=== PATIENT | male | born 1990 | race Caucasian/White ===

== ENCOUNTER 2019-12-22 08:00 | Emergency (ER) | payer SELFPAY ==
[~2019-12-22] VITALS: Ht 177.8 cm; Wt 90.0 kg
[2019-12-22 08:00] VITALS: BP 139/86
--- NOTE | 2019-12-22 08:43 | PHYS DOC ---
Past History Past Medical History: No Pertinent History General Adult EDM: Chief Complaint: KNEE INJURY HPI: HPI: Patient is a 29-year-old male who presents to the emergency department for right knee injury. He states he was play wrestling with his brother yesterday kaela cardoza, when he injured his knee while he was being taken down. He complains of pain over the lateral aspect of his knee, but is able to walk on his knee although it is painful to do so. He denies any other injuries, numbness, or weakness. Review of Systems: Review of Systems: Constitutional: Denies fever or chills Musculoskeletal: Denies back pain or joint pain, other than the right knee Integument: Denies rash Neurologic: Denies headache, focal weakness or sensory changes Heart Score: Risk Factors: Risk Factors: DM, Current or recent (<one month) smoker, HTN, HLP, family history of CAD, obesity. Risk Scores: Score 0 - 3: 2.5% MACE over next 6 weeks - Discharge Home Score 4 - 6: 20.3% MACE over next 6 weeks - Admit for Clinical Observation Score 7 - 10: 72.7% MACE over next 6 weeks - Early Invasive Strategies Allergies: Allergies: Allergies Coded Allergies Type Severity Reaction Last Updated Verified No Known Drug Allergies 12/22/19 No Physical Exam: PE: PHYSICAL EXAM: HEENT: Atruamatic NECK: Supple, normal ROM, non-tender. CARDIAC: Regular Rate and Rhythm LUNGS: Clear Bilaterally EXTREMITIES: There is tenderness to palpation over the lateral aspect of the right knee, with trace soft tissue swelling present on exam. The patient is able to fully flex and extend his knee. There is discomfort with strain and stress of the lateral collateral ligament. There is no tenderness palpation anteriorly, medially, or posteriorly. The knee landmarks and patella appear anatomically aligned. The remainder the extremities are unremarkable. PMS intact. EKG: EKG: [] Radiology/Procedures: Radiology/Procedures: PROCEDURE: KNEE RIGHT 3V Three-view right knee AP lateral oblique views HISTORY: Pain The visualized osseous structures appear normal. There is a dense effusion seen on lateral view. IMPRESSION: Effusion seen on the lateral view. This can be seen with an ACL tear. No bony anomaly identified.[] Course & Med Decision Making: Course & Med Decision Making Patient condition remained stable. I discussed test results, the suspected ligamentous injury, the need for orthopedic follow-up, knee immobilizer use and return precautions. Dragon Disclaimer: Dragon Disclaimer: This electronic medical record was generated, in whole or in part, using a voice recognition dictation system. Departure Departure: Impression: Primary Impression: Internal derangement of knee Disposition: 01 HOME/RESIDENCE PRIOR TO ADM Condition: STABLE Referrals: KOMAL LLANES MD (PCP) Patient Instructions: Knee Immobilizer, [id number], Knee Sprain Additional Instructions: Follow-up with orthopedics at [facility], call [phone] to schedule an appointment. Justification of Admission: Justification of Admission: Justification of Admission Dx: N/A CONNIE SORIA MD Dec 22, 2019 08:43
[2019-12-22] MEDS ORDERED: ACETAMINOPHEN 325 MG TABLET PO ONE (08:45)
--- NOTE | 2019-12-22 09:22 | RAD ---
Three-view right knee AP lateral oblique views HISTORY: Pain The visualized osseous structures appear normal. There is a dense effusion seen on lateral view. IMPRESSION: Effusion seen on the lateral view. This can be seen with an ACL tear. No bony anomaly identified. Electronically signed by: Bruce Vivas III, MD (12/22/2019 9:19 AM) [id number]
== END 2019-12-22 09:40 | disposition home or self-care (01) ==
LOC: ER 08:00
DX: S86.811A Strain of other muscle(s) and tendon(s) at lower leg level, right leg, initial encounter (principal); M23.91 Unspecified internal derangement of right knee; X50.9XXA Other and unspecified overexertion or strenuous movements or postures, initial encounter; Y93.72 Activity, wrestling; Y92.89 Other specified places as the place of occurrence of the external cause; Y99.8 Other external cause status
CPT/HCPCS: 29505; 73562; 99283